=== PATIENT | female | born 1990 ===

== ENCOUNTER 2017-02-03 06:26 | Inpatient (IN) ==
[2017-02-03] MEDS ORDERED: CITRIC ACID/SODIUM CITRATE 30 ML UDCUP PO ONE (07:01)
[2017-02-03] MEDS ORDERED: FAMOTIDINE 20 MG/2 ML VIAL IV ONE (07:01)
[2017-02-03] MEDS ORDERED: ceFAZolin 2,000 MG in PREMIX 1 EACH IV ONE (07:01)
[2017-02-03 07:29] LABS: Basophils % 0.1 % (0.0-0.8); Eosinophils % 0.1 % (0.00-10.9); Hematocrit 30.9 VOL% (35.7-47.0); Immature Granulocytes % 0.5 %; Immature Granulocytes Absolute 0.04 #; Lymphocytes # 1.3 10*3/uL (1.4-4.0); Lymphocytes % 15.4 % (21.3-54.2); Mean Corpuscular HGB Conc 32.4 GM/DL (32-36); Mean Corpuscular Hemoglobin 25 PG (27-34); Mean Corpuscular Volume 78.6 FL (87-102); Mean Platelet Volume 9.2 FL (9.6-12.0); Monocytes # 0.4 10*3/uL (0.11-0.8); Monocytes % 5.2 % (1.7-12.7); Neutrophils # 6.5 10*3/uL (1.4-7.4); Neutrophils % 78.7 % (38.7-73.9); Platelet Count 330 T/CUMM (130-400); Red Blood Count 3.93 MC/CUMM (3.8-5.5); Red Cell Distribution Width 16.8 % (9.3-17.3); White Blood Count 8.3 T/CUMM (4-12)
--- NOTE | 2017-02-03 08:19 | XRay Report ---
Referring Physician: Julio Dodd Exam: XR KUB Date: February 03, 2017 at 6:58 AM Reason: presentation Comparison: None Findings: A single intrauterine is seen in a cephalic presentation. There is no evidence of bowel obstruction or free air. No acute osseous process is seen. Devices project at the abdomen and are likely external to the patient. Impression: There is a single intrauterine in a cephalic presentation. PROCEDURE INTERPRETED AT [facility] DEPARTMENT OF RADIOLOGY Final Report Signed by: Dr. Temitope Osman
--- NOTE | 2017-02-03 08:26 | Ultrasound Report ---
Exam: US OB limited Date: 02/03/2017 7:50 AM Comparison: None Indication: Estimated weight Technique:[Limited transabdominal scans were obtained. Ultrasound images were captured and stored.] Findings: There is a single intrauterine fetus in the cephalic presentation with heart rate 164 BPM. The anterior placenta is not low lying in position with maternal ovaries not identified. No detail survey scans were obtained. Measurements obtained are as follows: BPD 37 weeks 0 days HC 38 weeks 3 days AC 37 weeks 5 days FL 36 weeks 6 days EFW 7 lbs. 2 oz. +/- 1 pound 1 ounce GP 31.4% SASHA 89.2 mm Impression: Single intrauterine fetus in cephalic presentation at 37 weeks 4 days +/- 2 weeks 4 days with EDC 02/20/2017. Estimated weight 7 lbs. 2 oz. +/- 1 pound 1 ounce. PROCEDURE INTERPRETED AT [facility] DEPARTMENT OF RADIOLOGY Final Report Signed by: Dr. Ирина Greenwood
[2017-02-03] MEDS: LACTATED RINGERS 1,000 ML IV SCH ×2 (08:30→16:10)
[2017-02-03] MEDS ORDERED: hydrOXYzine HCL 25 MG/1 ML VIAL IM PRN (09:16)
[2017-02-03] MEDS ORDERED: diphenhydrAMINE 50 MG/1 ML VIAL IV PRN ×2 (09:16)
[2017-02-03] MEDS ORDERED: ONDANSETRON 4 MG/2 ML VIAL IV ONE (09:16)
[2017-02-03] MEDS ORDERED: ePHEDrine 50 MG/ML AMP IV PRN (09:16)
[2017-02-03] MEDS ORDERED: LACTATED RINGERS 1,000 ML IV ONE (09:16)
[2017-02-03] MEDS ORDERED: PROMETHAZINE 25 MG/1 ML VIAL IM ONE (09:16)
[2017-02-03] MEDS ORDERED: fentaNYL 2 MCG/ROPIV 0.2% EPID 150 ML EPIDURAL SCH (09:16)
[2017-02-03] MEDS ORDERED: OXYTOCIN/LR 20 UNIT/1,000 ML BAG IV SCH (09:30)
--- NOTE | 2017-02-03 09:32 | OB/GYN History & Physical ---
History of Present Illness Chief complaint: In for elective induction of labor History of present illness: Ms. Gallegos is a 26 year old female who is a 4 para 3 living 3. Her ZULY is 02/10/2017 for estimated gestational age of 39 weeks. The patient presents to the labor department for elective induction of labor due to term . The patient also desires a . She has had a previous successful 1. The patient had a due to breech presentation. Her largest infant that was born vaginally weighing 7 pounds and 10 ounces. She reported no complications with her pregnancies. The patient received her care through the [facility] and the [facility] and she received routine care, her course was uneventful. labs: She is O+, serologies nonreactive, rubella is immune, hepatitis B is negative, HIV is negative, RPR is nonreactive, GBS culture is negative, review of systems is negative with exception of above. Home Medications Medication Instructions Recorded Confirmed Type No Known Home Medications [No 02/03/17 02/03/17 History Known Home Medications] Allergies Allergy/AdvReac Type Severity Reaction Status Date / Time No Known Allergies Allergy Verified 02/03/17 07:00 12 point system: reviewed and no additional remarkable complaints except as stated Medical,Surgical,& Family Hx - Medical History Medical History: noncontributory Reproductive: History of: Sexually Transmitted Disorders (CT 2011) - Surgical History Reproductive Surgeries: Surgical HX of;: Section ( with 2nd due to baby being breech) - Family History Family History: Reports;: Family Cancer (MATERNAL AUNT), Family Diabetes (MGF), Family Hypertension (MGF) - Social History Smoking Status: Never smoker Frequency of Alcohol Use: None Type of Drug Use: None Marital Status: Single Lives With:: Significant Other Functional capacity: independent ambulation 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 General appearance: no acute distress - Antepartum / Post Antepartum Exam Cervix -Dilatation: 3-4 cm Effacement: 60% Station: -1 Rupture: Intact Presentation: Vertex Heart Rate: 130s-140s Breast: bilateral: normal Abdomen obstetrics: Present: bowel sounds normal Vagina: Present: normal moisture Uterus exam: Present: enlarged - Head Head exam: Present: normal inspection - Respiratory Respiratory exam: Present: clear to auscultation bilaterally - Cardiovascular Cardiovascular exam: Present: regular rate and rhythm - GI/Abdominal GI/Abdominal exam: Present: normal bowel sounds, soft - Extremities Exam Extremities exam: Present: normal inspection - Neurological Exam Neurological exam: Present: alert, oriented X3 - Psychiatric Psychiatric exam: Present: normal affect, normal mood - Skin Skin exam: Present: normal color, warm Assessment and Plan (1) Term Status: Acute Assessment and plan: Admit IV fluids Low-dose IV Pitocin per protocol Artificial rupture membranes Epidural anesthesia IUPC Anticipate Current Visit: Yes (2) Previous section Status: Acute Assessment and plan: Same as above Current Visit: Yes Results - Labs CBC & BMP: 02/03/17 07:11
[2017-02-03 12:12] LABS: Apearance,Urine CLEAR (Clear); Bilirubin,Urine Negative (Negative); Blood, Urine Negative (Negative); Glucose,Urine (UA) Negative (Negative); Ketones,Urine 20 mg/dL (Negative); Mucus,Urine Occasional /LPF (Occasional); Nitrite,Urine Negative (Negative); Protein,Urine Negative; RBC,Urine 1 /HPF (0-4); Squamous Epithelial Cell,Urine Occasional /HPF (0-10); Urine Color Yellow (Yellow); Urine Urobilinogen < 2.0 EU/DL (0.2-1.0)
[2017-02-03] MEDS ORDERED: ONDANSETRON 4 MG/2 ML VIAL ONE (17:47)
--- NOTE | 2017-02-04 03:49 | Progress Note ---
Family Medicine PN Sub Interval history: Patient admitted for a . Risks benefits were thoroughly discussed. This patient progressed to approximately 4 cm after having some artificial rupture membranes and IUPC and IV Pitocin initiated. She progressed from 2 cm to approximately 4 cm and was allowed to rest throughout the evening. On the morning of the at approximately 4 AM her cervical exam had been changed to 5-6 cm after resting. An IUPC and scapula but had been placed inside prior to this. IV Pitocin be initiated again and again risks benefits were thoroughly discussed and she is in full agreement. Will anticipate . Exam (Progress Note) - Constitutional Vitals: Period Temp Pulse Resp BP Sys/Valiente Pulse Ox Last 24 Hr 97.3 F-98.1 F 83-126 18-19 106-112/52-65 99-99 Results - Labs CBC & BMP: 02/03/17 07:11
[2017-02-04] MEDS ORDERED: OXYTOCIN/LR 20 UNIT/1,000 ML BAG IV SCH (04:00)
[2017-02-04] MEDS: LACTATED RINGERS 1,000 ML IV SCH (07:26)
[2017-02-04] MEDS ORDERED: miSOPROStol 200 MCG TABLET ONE (08:16)
[2017-02-04] MEDS ORDERED: METHYLERGONOVINE 0.2 MG/1 ML AMP ONE (08:17)
--- NOTE | 2017-02-04 09:02 | Event Note ---
HPI: Ms. Gallegos presented to the labor department for elective induction of labor due to term . The patient has a history of previous section 1 with a successful . She was admitted for trial of labor. The risk and benefits were thoroughly discussed with this patient including rupture and the possibility of a repeat section the patient was in agreement with plan, plan of care was discussed with Dr. Dodd and all parties were in agreement. Stage I: Ms. Gallegos presented to labor department for elective induction of labor. She was started on IV fluids and low-dose IV Pitocin per protocol she progressed slowly in labor but maintain a CAT 1 tracing. An IUPC was inserted. Also the patient received an epidural for pain control. Her pain level was minimal with this device. Artificial rupture membranes was performed with clear fluid noted. The patient had an uneventful course of labor. Stage II: The patient was complete and was instructed to push. She pushed for approximately 5 minutes after which time the 's head was delivered, the mouth and nose were suctioned on the perineum. The remainder of the was delivered at 833 a viable female was noted. The was placed on the mom's abdomen for skin to skin bonding. Apgars were 8 at 1 minute and 9 at 5 minutes. weight was 6 pounds and 3 ounces. A cord pH was obtained and sent to the lab. Stage III: A spontaneous delivery of a Spears placenta with a three-vessel cord noted. The patient was further examined and appear to be grossly intact. The vagina cervix was inspected with no Lacerations noted. Estimated blood loss was approximately 125 cc. At the time of dictation mother and baby are both in stable condition.
[2017-02-04] MEDS ORDERED: BISACODYL 10 MG SUPP RECTAL PRN (09:26)
[2017-02-04] MEDS ORDERED: LANOLIN 50% CREAM 0.3 OZ TUBE TOP PRN (09:26)
[2017-02-04] MEDS ORDERED: IBUPROFEN 800 MG TABLET PO PRN (09:26)
[2017-02-04] MEDS ORDERED: oxyCODONE/ACETAMINOPHEN 5-325 MG TABLET PO PRN ×2 (09:26)
[2017-02-04] MEDS ORDERED: WITCH HAZEL PADS 100/JAR TOP PRN (09:26)
[2017-02-04] MEDS ORDERED: BENZOCAINE 20%/MENTHOL 0.5% SPRAY 56 GM CAN TOP PRN (09:26)
[2017-02-04] MEDS ORDERED: RHO(D) IMMUNE GLOBULIN 300 MCG SYRINGE IM ONE (09:26)
[2017-02-04] MEDS ORDERED: ACETAMINOPHEN 325 MG TABLET PO PRN (09:26)
[2017-02-04] MEDS ORDERED: HYDROCORTISONE 2.5% RECTAL CREAM 30 GM TUBE TOP PRN (09:26)
[2017-02-04] MEDS ORDERED: OXYTOCIN/LR 20 UNIT/1,000 ML BAG IV ONE (09:26)
[2017-02-04] MEDS ORDERED: DIPH/TET/ACEL PERT BOOSTER VACCINE 0.5 ML VIAL IM ONE (09:26)
[2017-02-04] MEDS ORDERED: MEASLES/MUMPS/RUBELLA VACCINE 0.5 ML VIAL SUBCUT ONE (09:26)
[2017-02-04] MEDS ORDERED: ACETAMINOPHEN/CODEINE 300-30 MG TABLET PO PRN (09:28)
--- NOTE | 2017-02-04 14:39 | Anesthesia Post-Op ---
Anesthesia Post OP - Post Ansesthetic Evaluation Patient seen in post op: Yes Resp: within normal limits CV: within normal limits Mental: within normal limits Temp: within normal limits [id number]: within normal limits Nausea and Vomiting: within normal limits Pain: within normal limits
[2017-02-04] MEDS: DOCUSATE SODIUM 100 MG CAPSULE PO SCH (21:35)
[2017-02-05 06:59] LABS: Basophils % 0.2 % (0.0-0.8); Eosinophils # 0.1 10*3/uL (0.0-0.87); Eosinophils % 0.5 % (0.00-10.9); Hematocrit 30.6 VOL% (35.7-47.0); Hemoglobin 9.9 GM/DL (12.0-16.0); Immature Granulocytes % 0.7 %; Immature Granulocytes Absolute 0.08 #; Lymphocytes # 1.6 10*3/uL (1.4-4.0); Lymphocytes % 14.4 % (21.3-54.2); Mean Corpuscular HGB Conc 32.4 GM/DL (32-36); Mean Corpuscular Hemoglobin 25 PG (27-34); Mean Corpuscular Volume 78.1 FL (87-102); Mean Platelet Volume 9.1 FL (9.6-12.0); Monocytes # 0.5 10*3/uL (0.11-0.8); Monocytes % 4.5 % (1.7-12.7); Neutrophils # 9.1 10*3/uL (1.4-7.4); Neutrophils % 79.7 % (38.7-73.9); Platelet Count 299 T/CUMM (130-400); Red Blood Count 3.92 MC/CUMM (3.8-5.5); Red Cell Distribution Width 17.3 % (9.3-17.3); White Blood Count 11.4 T/CUMM (4-12)
[2017-02-05] MEDS: DOCUSATE SODIUM 100 MG CAPSULE PO SCH ×2 (08:44→21:03)
[2017-02-05] MEDS ORDERED: FERROUS SULFATE 325 MG TABLET PO SCH (09:00)
--- NOTE | 2017-02-05 09:52 | OB/GYN Progress Note ---
Assessment and Plan (1) Term Status: Acute Assessment and plan: Admit IV fluids Low-dose IV Pitocin per protocol Artificial rupture membranes Epidural anesthesia IUPC Anticipate Current Visit: Yes (2) Previous section Status: Acute Assessment and plan: Same as above Current Visit: Yes (3) Vaginal after Status: Acute Assessment and plan: Initiate routine orders. 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 Bonding well with . 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 - Constitutional Vitals: Vital Signs Temp Pulse Resp BP Pulse Ox 02/05/17 07:16 97.4 F L 94 H 19 108/62 99 02/05/17 04:00 97.4 F L 86 16 106/60 96 02/05/17 00:18 97.4 F L 87 20 116/66 97 02/04/17 20:05 97.8 F 94 H 18 113/72 98 02/04/17 16:00 97.3 F L 87 20 123/67 97 02/04/17 12:30 58 L 20 126/70 97 02/04/17 11:30 97.5 F L 96 H 18 128/65 99 General appearance: no acute distress - Antepartum / Post Post Exam Breast: bilateral: normal Abdomen obstetrics: Present: bowel sounds normal Vagina: Present: normal moisture, discharge (Light lochia Rubra) Uterus exam: Present: enlarged (Fundus firm and midline) Anus/Rectum: Present: normal perianal skin - Head Head exam: Present: normal inspection - Respiratory Respiratory exam: Present: clear to auscultation bilaterally - Cardiovascular Cardiovascular exam: Present: regular rate and rhythm - GI/Abdominal GI/Abdominal exam: Present: normal bowel sounds, soft - Extremities Exam Extremities exam: Present: normal inspection - Back Exam Back exam: Present: normal inspection - Neurological Exam Neurological exam: Present: alert, oriented X3 - Psychiatric Psychiatric exam: Present: normal affect, normal mood - Skin Skin exam: Present: normal color, warm Results - Labs CBC & BMP: 02/05/17 06:37
[2017-02-05] MEDS: FERROUS SULFATE 325 MG TABLET PO SCH (21:03)
[2017-02-06 08:09] VITALS: BP 105/64
[2017-02-06] MEDS: DOCUSATE SODIUM 100 MG CAPSULE PO SCH (09:25)
[2017-02-06] MEDS: FERROUS SULFATE 325 MG TABLET PO SCH (09:25)
--- NOTE | 2017-02-06 12:20 | Discharge Summary ---
Hospital Course - Hospital Course Hospital Course: Ms. Gallegos presented to the labor department for elective induction of labor due to term . She subsequently delivered a viable with no complications. She has followed a normal course and she has done well. Her bleeding is minimal with no odor. Her bowel sounds are positive and she has had a normal bowel movement. Her vital signs and lab values are stable. Her fundus is firm and midline. She is bonding well with her . She will be discharged home with prescriptions for pain and a follow-up appointment in our office. Diagnosis - Discharge Diagnosis (1) Term Status: Acute (2) Previous section Status: Acute (3) Vaginal after Status: Acute Specialty Discharge - Follow Up or Referrals Follow up with: Julio Dodd MD [Physician] - (Follow-up in 6 weeks) Discharge Plan - Discharge Data Disposition: Disch To Home/Self Care Condition at Discharge: Stable Discharge Diet: advance to your usual diet, regular diet Activity: resume usual activities as tolerated Weight Bearing at Discharge: weight bear as tolerated Driving: no restrictions Contact your physician if you experience:: fever over 101, pain uncontrolled by pain medications - Discharge Medications New Acetamin/Codeine 300-30 Tab [Tylenol/Codeine #3] 2 tablet PO Q4H PRN #30 tablet PRN Reason: Pain Mild (1-3) Ferrous Sulfate Tab [Feosol Original Tab] 325 mg PO BID #60 tablet Ibuprofen Tab [Motrin Tab] 800 mg PO Q6H PRN #30 tablet PRN Reason: Pain Moderate (4-7) - Follow Up or Referral Follow Up: Julio Dodd MD [Physician] - - Forms/Instructions Instructions: Perineal Care (DC), Vaginal Delivery (DC), Bleeding (DC) Exam - Constitutional Vitals: Period Temp Pulse Resp BP Sys/Valiente Pulse Ox Last 24 Hr 97.2 F-98.7 F 82-105 18-22 104-127/58-69 98-99 General appearance: no acute distress - Head Head exam: Present: normal inspection - Respiratory Respiratory exam: Present: clear to auscultation bilaterally - Cardiovascular Cardiovascular exam: Present: regular rate and rhythm - GI/Abdominal GI/Abdominal exam: Present: normal bowel sounds, soft - Extremities Exam Extremities exam: Present: normal inspection - Back Exam Back exam: Present: normal inspection - Neurological Exam Neurological exam: Present: alert, oriented X3 - Psychiatric Psychiatric exam: Present: normal affect, normal mood - Skin Skin exam: Present: normal color, warm DS: Provider Date of admission: 02/03/17 06:26 Primary care physician: Radha Overton MD Attending physician on admission: Julio Dodd MD Consults: 02/03/17 07:01 Consult to Anesthesiology [CONS] Routine Consulting Provider: Reason for Anesthesiology: Pre-op Clearance 02/04/17 09:26 Consult to Casting Sorter [CONS] Routine Consult Casting Sorter: Breast Feeding Discharging clinician: Jeanine Mcgregor CNM Expected date of discharge: 02/06/17
== END 2017-02-06 12:45 | disposition home or self-care (01) | DRG 560 ==
LOC: N.LD 06:26 → N.OB 02-04 11:14
PROVIDERS: ADMIT Obstetrics & Gynecology; ATTEND Obstetrics & Gynecology

== ENCOUNTER 2022-04-18 16:21 | Inpatient (IN) ==
[2022-04-18] MEDS ORDERED: METHYLERGONOVINE 0.2 MG/1 ML AMP IM PRN (17:01)
[2022-04-18] MEDS ORDERED: OXYTOCIN/LR 20 UNIT/1,000 ML BAG IV ONE (17:01)
[2022-04-18] MEDS ORDERED: CARBOPROST TROMETHAMINE 250 MCG/ML AMP IM PRN (17:01)
[2022-04-18] MEDS ORDERED: ONDANSETRON 4 MG/2 ML VIAL IV PRN (17:01)
[2022-04-18] MEDS ORDERED: miSOPROStoL 200 MCG TABLET RECTAL PRN (17:01)
[2022-04-18] MEDS ORDERED: MEPERIDINE 50 MG/1 ML VIAL IV PRN (17:01)
[2022-04-18] MEDS ORDERED: BUTORPHANOL 2 MG/ML VIAL IV PRN (17:01)
[2022-04-18] MEDS ORDERED: TRANEXAMIC ACID 1,000 MG in SODIUM CHLORIDE 0.9% 100 ML IV PRN (17:01)
[2022-04-18] MEDS ORDERED: OXYTOCIN/LR 20 UNIT/1,000 ML BAG IV SCH (17:30)
[2022-04-18 17:33] LABS: Basophils % 0.1 % (0.0-0.8); Eosinophils % 0.2 % (0.00-10.9); Hematocrit 40.3 VOL% (35.7-47.0); Hemoglobin 13.1 GM/DL (12.0-16.0); Immature Granulocytes % 0.6 %; Immature Granulocytes Absolute 0.06 #; Lymphocytes # 1.6 10*3/uL (1.4-4.0); Lymphocytes % 17.1 % (21.3-54.2); Mean Corpuscular HGB Conc 32.5 GM/DL (32-36); Mean Corpuscular Volume 87.8 FL (87-102); Mean Platelet Volume 8.8 FL (9.6-12.0); Monocytes # 0.5 10*3/uL (0.11-0.8); Platelet Count 245 T/CUMM (130-400); Red Blood Count 4.59 MC/CUMM (3.8-5.5); Red Cell Distribution Width 16.6 % (9.3-17.3); White Blood Count 9.4 T/CUMM (4-12)
[2022-04-18] MEDS: LACTATED RINGERS 1,000 ML IV SCH (17:38)
[2022-04-18 17:52] LABS: Alanine Aminotransferase < 9 U/L (13-56); Albumin 2.7 G/DL (3.4-5.0); Alkaline Phosphatase 144 U/L (45-117); Aspartate Amino Transferase 8 U/L (0-37); Blood Urea Nitrogen 5 MG/DL (7-18); Calcium 8.8 MG/DL (8.5-10.1); Carbon Dioxide 24 MMOL/L (21-32); Chloride 104 MMOL/L (98-107); Glucose 79 MG/DL (74-106); Potassium 3.5 MMOL/L (3.5-5.1); Sodium 136 MMOL/L (136-145); Total Protein 6.6 G/DL (6.4-8.2)
[2022-04-19] MEDS: LACTATED RINGERS 1,000 ML IV SCH (02:02)
[2022-04-19] MEDS ORDERED: NALOXONE 0.4 MG/ML VIAL IV PRN (07:28)
[2022-04-19] MEDS ORDERED: ONDANSETRON 4 MG/2 ML VIAL IV ONE (07:28)
[2022-04-19] MEDS ORDERED: PROMETHAZINE 25 MG/1 ML VIAL IM ONE (07:28)
[2022-04-19] MEDS ORDERED: hydrOXYzine HCL 25 MG/1 ML VIAL IM PRN (07:28)
[2022-04-19] MEDS ORDERED: ePHEDrine 50 MG/ML VIAL IV PRN (07:28)
[2022-04-19] MEDS ORDERED: diphenhydrAMINE 50 MG/1 ML VIAL IV PRN ×2 (07:28)
[2022-04-19] MEDS ORDERED: CITRIC ACID/SODIUM CITRATE 30 ML UDCUP PO ONE (07:29)
[2022-04-19] MEDS ORDERED: FAMOTIDINE 20 MG/2 ML VIAL IV ONE (07:29)
[2022-04-19] MEDS ORDERED: LACTATED RINGERS 1,000 ML IV ONE (07:29)
[2022-04-19] MEDS ORDERED: fentaNYL 2 MCG/ROPIV 0.2% EPID 100 ML EPIDURAL SCH (07:30)
[2022-04-19 09:11] LABS: Mucus,Urine Occasional /LPF (Occasional); RBC,Urine <1 /HPF (0-4); Squamous Epithelial Cell,Urine Occasional /HPF (0-10); Urine Appearance Clear (Clear); Urine Color Yellow (Yellow); Urine Specific Gravity 1.015 (1.001-1.035)
[2022-04-19 09:12] LABS: Bilirubin,Urine Negative (Negative); Blood, Urine Negative (Negative); Glucose,Urine (UA) Negative (Negative); Ketones,Urine >160 mg/dL (Negative); Nitrite,Urine Negative (Negative); Protein,Urine Negative (Negative)
[2022-04-19] MEDS ORDERED: miSOPROStoL 200 MCG TABLET ONE (13:27)
[2022-04-19] MEDS ORDERED: SODIUM CHLORIDE 0.9% 0 ML IV ONE (13:28)
[2022-04-19] MEDS ORDERED: METHYLERGONOVINE 0.2 MG/1 ML AMP ONE (13:28)
[2022-04-19] MEDS ORDERED: OXYTOCIN/LR 20 UNIT/1,000 ML BAG IV ONE ×2 (13:28→13:51)
[2022-04-19] MEDS ORDERED: TRANEXAMIC ACID 1,000 MG/10 ML VIAL ONE (13:28)
[2022-04-19] MEDS ORDERED: CARBOPROST TROMETHAMINE 250 MCG/ML AMP IM ONE (13:28)
[2022-04-19] MEDS ORDERED: RHO(D) IMMUNE GLOBULIN 300 MCG SYRINGE IM ONE (13:51)
[2022-04-19] MEDS ORDERED: BISACODYL 10 MG SUPP RECTAL PRN (13:51)
[2022-04-19] MEDS ORDERED: ACETAMINOPHEN 325 MG TABLET PO PRN (13:51)
[2022-04-19] MEDS ORDERED: BENZOCAINE 20%/MENTHOL 0.5% SPRAY 56 GM CAN TOP PRN (13:51)
[2022-04-19] MEDS ORDERED: IBUPROFEN 800 MG TABLET PO PRN (13:51)
[2022-04-19] MEDS ORDERED: MEASLES/MUMPS/RUBELLA VACCINE 0.5 ML VIAL SUBCUT ONE (13:51)
[2022-04-19] MEDS ORDERED: HYDROCORTISONE 2.5% RECTAL CREAM 30 GM TUBE TOP PRN (13:51)
[2022-04-19] MEDS ORDERED: ONDANSETRON 4 MG/2 ML VIAL IV PRN (13:51)
[2022-04-19] MEDS ORDERED: WITCH HAZEL PADS 100/JAR TOP PRN (13:51)
[2022-04-19] MEDS ORDERED: DIPH/TET/ACEL PERT BOOSTER VACCINE 0.5 ML VIAL IM ONE (13:51)
[2022-04-19] MEDS ORDERED: LANOLIN 50% CREAM 0.3 OZ TUBE TOP PRN (13:51)
[2022-04-19] MEDS ORDERED: ACETAMINOPHEN/CODEINE 300-30 MG TABLET PO PRN ×2 (13:54)
[2022-04-19 13:59] LABS: Cord Venous Blood HCO3 23.9 MMOL/L; Cord Venous Blood PCO2 42.5 MMHG; Cord Venous Blood PO2 33.5
[2022-04-19] MEDS: DOCUSATE SODIUM 100 MG CAPSULE PO SCH (22:01)
[2022-04-20 05:30] LABS: Basophils % 0.1 % (0.0-0.8); Eosinophils # 0.1 10*3/uL (0.0-0.87); Eosinophils % 0.5 % (0.00-10.9); Hematocrit 36.4 VOL% (35.7-47.0); Hemoglobin 11.7 GM/DL (12.0-16.0); Immature Granulocytes % 0.6 %; Immature Granulocytes Absolute 0.06 #; Lymphocytes # 1.7 10*3/uL (1.4-4.0); Lymphocytes % 17.3 % (21.3-54.2); Mean Corpuscular HGB Conc 32.1 GM/DL (32-36); Mean Corpuscular Volume 87.5 FL (87-102); Mean Platelet Volume 9.3 FL (9.6-12.0); Monocytes # 0.6 10*3/uL (0.11-0.8); Monocytes % 6.1 % (1.7-12.7); Neutrophils % 75.4 % (38.7-73.9); Platelet Count 235 T/CUMM (130-400); Red Blood Count 4.16 MC/CUMM (3.8-5.5); Red Cell Distribution Width 16.4 % (9.3-17.3); White Blood Count 9.9 T/CUMM (4-12)
[2022-04-20] MEDS: FERROUS SULFATE 325 MG TABLET PO SCH (09:30)
[2022-04-20] MEDS: DOCUSATE SODIUM 100 MG CAPSULE PO SCH ×2 (09:30→21:20)
[2022-04-20] MEDS: MULTIVITAMIN (PRENATAL) TABLET PO SCH (09:30)
[2022-04-21] MEDS: FERROUS SULFATE 325 MG TABLET PO SCH (08:27)
[2022-04-21] MEDS: MULTIVITAMIN (PRENATAL) TABLET PO SCH (08:27)
[2022-04-21] MEDS: DOCUSATE SODIUM 100 MG CAPSULE PO SCH (08:27)
[2022-04-21 09:05] VITALS: BP 102/58
== END 2022-04-21 16:55 | disposition home or self-care (01) | DRG 560 ==
LOC: N.LD 16:21 → N.OB 04-19 16:45
PROVIDERS: ADMIT Obstetrics & Gynecology; ATTEND Obstetrics & Gynecology